=== PATIENT | male | born 1990 | race African-American/Black ===

== ENCOUNTER 2018-11-25 16:30 | Emergency (ER) | payer OTHER ==
[~2018-11-25] VITALS: Ht 170.2 cm; Wt 64.0 kg
[2018-11-25] MEDS ORDERED: NAPROXEN500 MG PO (17:18)
[2018-11-25 17:26] VITALS: BP 141/95
== END 2018-11-25 17:34 | DRG 556 ==
LOC: ED 16:30
DX: M25.512 Pain in left shoulder (principal); X50.0XXA Overexertion from strenuous movement or load, initial encounter; Y93.B1 Activity, exercise machines primarily for muscle strengthening; Y92.149 Unspecified place in prison as the place of occurrence of the external cause

== ENCOUNTER 2019-03-10 15:36 | Emergency (ER) | payer OTHER ==
[~2019-03-10] VITALS: Ht 170.2 cm; Wt 78.0 kg
[~2019-03-10 15:36] MED LIST: NAPROXEN500 MG PO
[2019-03-10 19:45] VITALS: BP 138/78
== END 2019-03-10 19:45 | DRG 563 ==
LOC: ED 15:36
DX: M24.312 Pathological dislocation of left shoulder, not elsewhere classified (principal)
CPT/HCPCS: J2060